=== PATIENT | male | born 1965 | race Caucasian/White ===

== ENCOUNTER 2024-08-30 14:13 | Observation (INO) ==
[2024-08-30 15:04] LABS: Basophils # (auto) 0.03 K/uL (0.00-0.20); Basophils % (auto) 0.3 %; Eosinophils # (auto) 0.19 K/uL (0.00-0.50); Hematocrit (blood only) 45.8 % (42.0-52.0); Hemoglobin 15.9 g/dl (14.0-18.0); Immature Granulocytes # (auto) 0.02 K/uL (0.01-0.20); Immature Granulocytes % (auto) 0.2 %; Lymphocytes # (auto) 1.81 K/uL (1.20-3.40); Lymphocytes % (auto) 18.9 %; Mean Corpuscular Hemoglobin 30.6 pg (25.0-34.0); Mean Corpuscular Hgb Conc 34.7 g/dL (32.0-36.0); Mean Corpuscular Volume 88.2 fL (80.0-100.0); Mean Platelet Volume 10.8 fL (9.4-12.4); Monocytes # (auto) 0.72 K/uL (0.11-0.59); Monocytes % (auto) 7.5 %; Neutrophils # (auto) 6.79 K/uL (1.40-6.50); Neutrophils % (auto) 71.1 %; Platelet Count 206 K/uL (130-400); RDW Coefficient of Variation 12.3 % (11.5-14.5); RDW Standard Deviation 40.1 fL (36.4-46.3); Red Blood Count 5.19 M/uL (4.70-6.10); White Blood Count 9.56 K/ul (4.8-10.8)
--- NOTE | 2024-08-30 15:07 | Emergency Department Note ---
Impression & Plan Atypical chest pain ED Provider Note CHIEF COMPLAINT: Chest pain HISTORY OF PRESENT ILLNESS: This 59-year-old male patient presents to the emergency department for evaluation of left sided and central chest pain. He reports the pain began approximately 2 days ago. He states it began as a pain in the middle of his upper spine, and left shoulder. He reports yesterday the pain began to radiate around to the left side and into the central chest. 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 He reports that it was positional, worse when he wants forward, or lies on his left or right side. He reports the pain was so severe, he pulled his truck to the side of the road and called an ambulance. He states no previous cardiac history, and no recent illnesses. He reports hx of HTN, DMII, and BPH. He describes the pain as a belt around his chest that is tightening. He appears well, with stable vital signs. REVIEW OF SYSTEMS: A review of systems was performed with positives and pertinent negatives listed in the history of present illness. All other systems were reviewed and are negative. ALLERGIES: See below MEDICATIONS: See below PMH: See below PHYSICAL EXAM: VITALS: Vitals are noted on the nurse's note and reviewed by myself. Vital signs stable. GENERAL: 59-year-old male, in mild distress, nondiaphoretic, obese. SKIN: The skin was without rashes, erythema, edema, or bruising. HEAD: Normocephalic atraumatic. EYES: Pupils equal round and reactive to light and accommodation. Conjunctivae without injection, sclerae without icterus. Extraocular movements intact. NECK: Supple without nuchal rigidity. No lymphadenopathy. No JVD. HEART: Regular rate and rhythm without murmurs gallops or rubs. LUNGS: Clear to auscultation bilaterally without wheezes, rales or rhonchi. No retractions or accessory muscle use. ABDOMEN: Positive bowel sounds x 4. Soft, slight TTP in the epigastrium, no diffuse TTP, no rebound TTP or guarding. MUSCULOSKELETAL: No muscle atrophy, erythema, or edema noted. NO TTP present upon exam or reproducible pain on the left, central, chest, or back. Normal gait. Strength 5/5 throughout. NEURO: Patient was alert and oriented to person place and time. No focal neurological deficits. MEDICAL DECISION MAKING: The patient is a pleasant 59-year-old male who arrives to the emergency department for evaluation of the above-stated complaint. Upon examination the patient has severe pain to the left anterior chest. Initial workup was performed including a saline lock, CBC, CMP, lipase, troponin, chest x-ray and EKG by nursing staff. CBC shows no leukocytosis, with a stable hemoglobin and hematocrit, CMP is unremarkable, lipase negative troponin negative. Chest x-ray shows 1.2 cm right lower lobe opacity, consistent with nodule, pneumonia, or artifactual. EKG shows normal sinus rhythm at a rate of 85 bpm, with no ST elevation, depression, or ectopy. 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 After discussion with the patient, CT of the chest with IV contrast was obtained, as well as a CRP. CRP is elevated at 5.17. CT imaging of the chest shows a likely previous granulomatous disease with current granuloma in the right middle lobe. The patient was provided IV Pepcid, as well as IV Toradol for pain control, with no relief of his symptoms. His symptoms are consistent with pericarditis, however, PE cannot be ruled out without further imaging. At this time, I believe the patient requires hospital admission for further workup, and cardiology evaluation. Case management was contacted to facilitate admission to the [facility] – [place], [place]. The case was discussed with Dr. Powers, who agreed to accept the patient under his care. Upper respiratory biofire panel was obtained as well as PE study of the chest per Dr. Powers. Please see his documentation for further patient workup and care. DIFFERENTIAL DIAGNOSIS: Cardiac ischemia, aortic dissection, pulmonary embolism, pneumothorax, pneumonia, pericarditis, myocarditis, esophageal rupture, GERD, cholecystitis, pancreatitis, musculoskeletal, as well as other pathologies. Continuous volunteer recruitment coordinator: Order was placed for continuous volunteer recruitment coordinator. Patient was placed on the volunteer recruitment coordinator. Patient was noted to be in normal sinus rhythm at an initial rate of 83 bpm. The chart was completed utilizing [employer] voice recognition software. Grammatical errors, random word insertions, pronoun errors, and incomplete sentences are an occasional consequence of this system due to software limitations, ambient noise, and hardware issues. Any formal questions or concerns about the content, text, or information contained within the body of this dictation should be directly addressed to the physician for clarification. Past Med/Surg History Problem List (Updated 08/30/24 @ 20:04 by JACE Murillo) Atypical chest pain (Acute) Social History Smoking Status: Never smoker Preferred Language: Azeri Feels Safe at Home: Yes Allergies Allergies Allergy/AdvReac Type Severity Reaction Status Date / Time No Known Allergies Allergy Unverified 08/30/24 16:10 Results & Data (ED) Vital Signs Vital Signs - 24 hr 08/30/24 14:24 08/30/24 14:36 08/30/24 14:40 Temperature 37.1 C Temperature Source Oral Pulse Rate 86 83 99 H Pulse Rate [Apical] Pulse Rhythm Regular Regular Pulse Strength Normal Respiratory Rate 25 H 19 Respiratory Effort / Characteristics Non-Labored Respiratory Depth Normal Respiratory Pattern Regular Blood Pressure 132/95 Blood Pressure [Right Arm] Blood Pressure Mean 107 Blood Pressure Mean [Right Arm] Blood Pressure Position Lying Blood Pressure Position [Right Arm] Pulse Oximetry 95 94 Oxygen Delivery Method Room Air Room Air Sepsis Recent Fever Within 48 Hours No Sepsis New/Unexplained Change in Mental Status N/A Sepsis Action Taken by Nursing No Action Required 08/30/24 16:03 08/30/24 18:33 Temperature Temperature Source Pulse Rate Pulse Rate [Apical] 84 93 H Pulse Rhythm Pulse Strength Respiratory Rate 14 19 Respiratory Effort / Characteristics Respiratory Depth Respiratory Pattern Blood Pressure Blood Pressure [Right Arm] 146/98 H 167/102 H Blood Pressure Mean Blood Pressure Mean [Right Arm] 114 123 Blood Pressure Position Blood Pressure Position [Right Arm] Lying Standing Pulse Oximetry 95 96 Oxygen Delivery Method Room Air Room Air Sepsis Recent Fever Within 48 Hours Sepsis New/Unexplained Change in Mental Status Sepsis Action Taken by [facility] Medications Current Medication List: was personally reviewed by me Laboratory Data Attestation: I reviewed the patient's lab results. 08/30/24 14:37 08/30/24 14:37 Lab Results 08/30/24 08/30/24 Range/Units 14:37 18:55 WBC 9.56 (4.8-10.8) K/ul RBC 5.19 (4.70-6.10) M/uL Hgb 15.9 (14.0-18.0) g/dl Hct 45.8 (42.0-52.0) % MCV 88.2 (80.0-100.0) fL MCH 30.6 (25.0-34.0) pg MCHC 34.7 (32.0-36.0) g/dL RDW Std Deviation 40.1 (36.4-46.3) fL RDW Coeff of Bree 12.3 (11.5-14.5) % Plt Count 206 (130-400) K/uL MPV 10.8 (9.4-12.4) fL Immature Gran % (Auto) 0.2 % Neut % (Auto) 71.1 % Lymph % (Auto) 18.9 % [place] % (Auto) 7.5 % Eos % (Auto) 2.0 % Baso % (Auto) 0.3 % Neut # (Auto) 6.79 H (1.40-6.50) K/uL Lymph # (Auto) 1.81 (1.20-3.40) K/uL [place] # (Auto) 0.72 H (0.11-0.59) K/uL Eos # (Auto) 0.19 (0.00-0.50) K/uL Baso # (Auto) 0.03 (0.00-0.20) K/uL Immature Gran # (Auto) 0.02 (0.01-0.20) K/uL Sodium 139 (136-145) mmol/L Potassium 3.7 (3.5-5.1) mmol/L Chloride 107 (98-107) mmol/L Carbon Dioxide 26 (21-32) mmol/L Anion Gap 6 (3-11) BUN 19 (6-23) mg/dl Creatinine 0.78 (0.6-1.4) mg/dl Est Cr Clr Drug Dosing 124.0 ml/min eGFR 102.73 BUN/Creatinine Ratio 24.4 H (10-20) Glucose 116 H (70-99(Fasting)) mg/dl Calcium 8.9 (8.6-10.3) mg/dl Total Bilirubin 1.0 (0.2-1.0) mg/dl AST 19 (13-39) U/L ALT 26 (7-52) U/L Alkaline Phosphatase 47 (34-104) U/L Troponin I High Sens 3.4 3.4 (0-20) pg/ml C-Reactive Protein 5.17 H (0-0.5) mg/dl Total Protein 7.3 (6.0-8.3) gm/dl Albumin 3.8 (3.4-5.0) gm/dl Globulin 3.5 (2.5-4.0) gm/dl Albumin/Globulin Ratio 1.1 (0.9-2) Lipase 15 (11-82) U/L Administered Medications Discontinued Medications Famotidine (Pepcid 20mg Iv Push) 20 mg in 5 mls @ 2.5 mls/min IV NOW STA Stop: 08/30/24 16:05 Last Admin: 08/30/24 16:13 Dose: 2.5 mls/min Documented By: JOE Ketorolac Tromethamine (Ketorolac Tromethamine 15 Mg/Ml Vial) 15 mg IV NOW ONE Stop: 08/30/24 18:10 Last Admin: 08/30/24 18:34 Dose: 15 mg Documented By: JOE Imaging Data Attestation: I personally reviewed and interpreted this imaging study as follows: Radiologist's Impression: Chest X-Ray 08/30/24 14:36 XR chest 1V portable CLINICAL HISTORY: Chest pain, nonspecific COMPARISON STUDY: No previous studies for comparison. FINDINGS: Lung volumes are mildly diminished. There is a subtle 1.2 cm right lower lung opacity. There is no pneumothorax or pleural effusion. Cardiac size is normal. Mediastinal contours are normal. There is no evidence for pulmonary edema. IMPRESSION: Subtle 1.2 cm right lower lung opacity. This may be artifactual however a small focus of pneumonia or a pulmonary nodule could appear similar. Follow-up PA and lateral chest radiographs in one month to ensure resolution are recommended. ACT 112: Negative or not required by law. Electronically signed by: Klaus Mike M.D. 08/30/2024 3:[address] 08/30/24 16:39 EXAM: CT Chest With Intravenous Contrast INDICATION: Back pain for 2 days. TECHNIQUE: Axial computed tomography images of the chest with intravenous contrast. Sagittal and coronal reformatted images were created and reviewed. This CT exam was performed using one or more of the following dose reduction techniques: automated exposure control, adjustment of the mA and/or kV according to patient size, and/or use of iterative reconstruction technique. CONTRAST: 94ml of Optiray 320 was administered intravenously. COMPARISON: No relevant prior studies available. FINDINGS: Limitations: None. Lungs and pleural spaces: Right middle lobe granuloma noted. There is mild atelectasis in the lower lobes. No bronchiectasis, honeycombing or reticulation. No pneumothorax. No significant effusion. Heart: No abnormality noted. Thyroid: No abnormality noted. Bones/joints: Mild scoliotic curvature of the spine. No acute or chronic deformity. Soft tissues: No significant abnormality noted. Vasculature: No abnormality noted. No thoracic aortic aneurysm. Lymph nodes: There are subcentimeter calcified and noncalcified right paratracheal and right hilar lymph nodes consistent with previous granulomatous disease. Liver: Normal size and contour. Hypodense typical of steatosis. No mass or ductal dilation. IMPRESSION: No acute findings in the chest. ACT 112: Negative or not required by law. Electronically signed by Elin Echols 08-30-2024 5:35 PM Discharge Plan Visit Data Chief Complaint: Chest Pain Stated Complaint: CHEST PAIN ED Provider: Courtney Flores ED Midlevel Provider: Myesha Musa Discharge Problem: Atypical chest pain Forms Stand Alone Forms: [facility] Referrals Referrals: PCP,NO [Primary Care Provider] -
[2024-08-30 15:22] LABS: Albumin Globulin Ratio 1.1 (0.9-2); Albumin Level 3.8 gm/dl (3.4-5.0); BUN Creatinine Ratio 24.4 (10-20); Calcium 8.9 mg/dl (8.6-10.3); Globulin 3.5 gm/dl (2.5-4.0); Potassium 3.7 mmol/L (3.5-5.1); Total Protein 7.3 gm/dl (6.0-8.3)
[2024-08-30 15:27] LABS: Troponin I High Sensitivity 3.4 pg/ml (0-20)
--- NOTE | 2024-08-30 15:41 | XRay Report ---
XR chest 1V portable CLINICAL HISTORY: Chest pain, nonspecific COMPARISON STUDY: No previous studies for comparison. FINDINGS: Lung volumes are mildly diminished. There is a subtle 1.2 cm right lower lung opacity. Ther e is no pneumothorax or pleural effusion. Cardiac size is normal. Mediastinal contours are normal. Th ere is no evidence for pulmonary edema. IMPRESSION: Subtle 1.2 cm right lower lung opacity. This may be artifactual however a small focus of pneumonia or a pulmonary nodule could appear similar. Follow-up PA and lateral chest radiographs in one month to ensure resolution are recommended. ACT 112: Negative or not required by law. Electronically signed by: Klaus Mike M.D. 08/30/2024 3:39 PM
--- NOTE | 2024-08-30 16:08 | Electrocardiogram Report ---
Test Reason : Blood Pressure : */* mmHG Vent. Rate : 85 BPM Atrial Rate : 85 BPM P-R Int : 134 ms QRS Dur : 80 ms QT Int : 354 ms P-R-T Axes : 29 -17 58 degrees QTcB Int : 421 ms Normal sinus rhythm Normal ECG No previous ECGs available Confirmed by Alvarado Quiroz ([id number]) on 08/30/2024 4:06:17 PM Referred By: Confirmed By: Alvarado Quiroz
[2024-08-30] MEDS: FAMOTIDINE 20MG IV PUSH 20 MG/5 ML SYR IV STA (16:13)
--- NOTE | 2024-08-30 17:36 | CT Scan Report ---
EXAM: CT Chest With Intravenous Contrast INDICATION: Back pain for 2 days. TECHNIQUE: Axial computed tomography images of the chest with intravenous contrast. Sagittal and coronal reformatted images were created and reviewed. This CT exam was performed using one or more of the following dose reduction techniques: automated exposure control, adjustment of the mA and/or kV according to patient size, and/or use of iterative reconstruction technique. CONTRAST: 94ml of Optiray 320 was administered intravenously. COMPARISON: No relevant prior studies available. FINDINGS: Limitations: None. Lungs and pleural spaces: Right middle lobe granuloma noted. There is mild atelectasis in the lower lobes. No bronchiectasis, honeycombing or reticulation. No pneumothorax. No significant effusion. Heart: No abnormality noted. Thyroid: No abnormality noted. Bones/joints: Mild scoliotic curvature of the spine. No acute or chronic deformity. Soft tissues: No significant abnormality noted. Vasculature: No abnormality noted. No thoracic aortic aneurysm. Lymph nodes: There are subcentimeter calcified and noncalcified right paratracheal and right hilar lymph nodes consistent with previous granulomatous disease. Liver: Normal size and contour. Hypodense typical of steatosis. No mass or ductal dilation. IMPRESSION: No acute findings in the chest. ACT 112: Negative or not required by law. Electronically signed by Elin Echols 08-30-2024 5:35 PM
[2024-08-30] MEDS: KETOROLAC TROMETHAMINE 15 MG/ML VIAL IV ONE ×2 (18:34→22:42)
[2024-08-30 18:52] LABS: C Reactive Protein 5.17 mg/dl (0-0.5)
--- NOTE | 2024-08-30 20:11 | History & Physical Report ---
Date of Service August 30, 2024 Assessment & Plan (1) Atypical chest pain: (2) Hypertension: (3) Granulomatous lung disease: (4) Diabetes mellitus: (5) Vitamin D deficiency: Plan Atypical chest pain/hypertension- The patient will be admitted to telemetry for serial cardiac enzymes, serial EKG's, cardiac rhythm monitoring and a 2-D echocardiogram with Dopplers. Patient reports he had not taken his metoprolol succinate 125 mg on the morning of 08/30 Will give a partial dose 50 mg this evening, and then resume full dosing in the a.m. on 08/31 Initial troponin 3.4 EKG shows normal sinus rhythm at [address]-T changes Patient did get significant improvement in pain with Toradol 15 mg IV given in the ED Respiratory BioFire test was negative Tickborne panel ordered and pending CT angiography chest PE protocol was negative for PE, but did show evidence of prior granulomatous disease as noted Differential including but not limited to: Coronary ischemia, arrhythmia, granulomatous disease, pericarditis, pleuritis, tickborne illness Diabetes mellitus- Hold metformin Placed on Accu-Cheks with NovoLog SSI Granulomatous disease- Noted on chest x-ray and CT Of note, patient does report exposure to chickens There is not appear to be an active exacerbation of pre-existing disease Follow clinically Vitamin D deficiency- Continue supplementation as noted History of Present Illness Chief Complaint: The patient presents to the emergency department with complaint of chest pain that began about 2 days ago, initially began in his back, went around to his front on both sides, then up into his chest bilaterally. His symptoms worsened considerably the day of admission, 08/30, and thus presents to the ED for assessment. 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 Primary Care Provider: NO PCP The patient is a 59-year-old male with a past medical and surgical history including hypertension, diabetes mellitus, vitamin D deficiency, and lumbar degenerative disc disease status post discectomy many years ago. 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 Allergies Allergy/AdvReac Type Severity Reaction Status Date / Time No Known Allergies Allergy Unverified 08/30/24 16:10 Past Med/Surg History Problem List (Updated 08/31/24 @ 02:43 by Denis Powers MD) Vitamin D deficiency Diabetes mellitus Hypertension Atypical chest pain (Acute) Medical History (Updated 08/31/24 @ 02:43 by Denis Powers MD) Granulomatous lung disease Social History Smoking Status: Never smoker Hx Alcohol Use: Yes Alcohol type: hard liquor Hx Substance Use: No Preferred Language: Mauritanian Communication Ability: Effective Screen Door Maker Required: No Beliefs That Will Affect Care: None Current Living Situation: Significant Other Other Information That Helps Us Care for You: No Feels Safe at Home: Yes Safety Concerns: Feels Safe At This Time Assistive Devices: None Review of Systems Review of Systems: The patient denies palpitations, cough, lower extremity swelling, sore throat, fevers, chills, sweats, nausea, vomiting, diarrhea , constipation, abdominal pain, pelvic pain, blood in urine or stool, dysuria, urinary frequency or urgency, lightheadedness, dizziness, headache, memory loss, loss of consciousness, rash, abnormal bruising or bleeding, imbalance, focal weakness, numbness or tingling in arms or legs, neck pain, or night sweats. The review of systems is otherwise negative other than for that already noted above, and at least 10 systems have been reviewed. Physical Exam Physical Exam: The patient is awake, alert and oriented 3, well developed and well nourished, normocephalic and atraumatic, lying in bed and in no acute distress. HEENT--PERRL, EOMI, mucous membranes and oropharynx mildly dry. Neck--supple. No JVD. No bruits. Thyroid normal, trachea midline, no adenopathy. Heart--normal S1 and S2. No murmurs, rubs or gallops. Lungs--clear bilaterally, no respiratory distress, no accessory muscle use. Abdomen--normal bowel sounds and soft. Nontender. Nondistended. Obese Extremities--no cyanosis or clubbing. No edema. There are good distal pulses b/l. Dermatologic--normal skin turgor, normal color, no abnormal lymph nodes, no rash. Neurologic--cranial nerves II through XII grossly intact. Rheumatologic--normal range of motion. Psychiatric--normal affect. Results & Data Results & Data Vital Signs (Past 12 Hours) Vital Signs Temp Pulse Pulse Resp BP BP Pulse Ox 08/30/24 18:33 93 H 19 167/102 H 96 08/30/24 16:03 84 14 146/98 H 95 08/30/24 14:40 37.1 C 99 H 19 132/95 94 08/30/24 14:36 83 25 H 95 08/30/24 14:24 86 O2 Del Method 08/30/24 18:33 Room Air 08/30/24 16:03 Room Air 08/30/24 14:40 Room Air 08/30/24 14:36 Room Air 08/30/24 14:24 Laboratory Results Laboratory Results WBC 9.56 K/ul (4.8-10.8) 08/30/24 14:37 RBC 5.19 M/uL (4.70-6.10) 08/30/24 14:37 Hgb 15.9 g/dl (14.0-18.0) 08/30/24 14:37 Hct 45.8 % (42.0-52.0) 08/30/24 14:37 MCV 88.2 fL (80.0-100.0) 08/30/24 14:37 MCH 30.6 pg (25.0-34.0) 08/30/24 14:37 MCHC 34.7 g/dL (32.0-36.0) 08/30/24 14:37 RDW Std Deviation 40.1 fL (36.4-46.3) 08/30/24 14:37 RDW Coeff of Bree 12.3 % (11.5-14.5) 08/30/24 14:37 Plt Count 206 K/uL (130-400) 08/30/24 14:37 MPV 10.8 fL (9.4-12.4) 08/30/24 14:37 Immature Gran % (Auto) 0.2 % 08/30/24 14:37 Neut % (Auto) 71.1 % 08/30/24 14:37 Lymph % (Auto) 18.9 % 08/30/24 14:37 Real % (Auto) 7.5 % 08/30/24 14:37 Eos % (Auto) 2.0 % 08/30/24 14:37 Baso % (Auto) 0.3 % 08/30/24 14:37 Neut # (Auto) 6.79 K/uL (1.40-6.50) H 08/30/24 14:37 Lymph # (Auto) 1.81 K/uL (1.20-3.40) 08/30/24 14:37 Real # (Auto) 0.72 K/uL (0.11-0.59) H 08/30/24 14:37 Eos # (Auto) 0.19 K/uL (0.00-0.50) 08/30/24 14:37 Baso # (Auto) 0.03 K/uL (0.00-0.20) 08/30/24 14:37 Immature Gran # (Auto) 0.02 K/uL (0.01-0.20) 08/30/24 14:37 PT 10.3 Seconds (9.0-12.0) 08/30/24 14:37 INR 0.9 (0.9-1.1) 08/30/24 14:37 APTT 28 Seconds (21-31) 08/30/24 14:37 PTT Ratio 1.0 08/30/24 14:37 Sodium 139 mmol/L (136-145) 08/30/24 14:37 Potassium 3.7 mmol/L (3.5-5.1) 08/30/24 14:37 Chloride 107 mmol/L (98-107) 08/30/24 14:37 Carbon Dioxide 26 mmol/L (21-32) 08/30/24 14:37 Anion Gap 6 (3-11) 08/30/24 14:37 BUN 19 mg/dl (6-23) 08/30/24 14:37 Creatinine 0.78 mg/dl (0.6-1.4) 08/30/24 14:37 Est Cr Clr Drug Dosing 124.0 ml/min 08/30/24 14:37 eGFR 102.73 08/30/24 14:37 BUN/Creatinine Ratio 24.4 (10-20) H 08/30/24 14:37 Glucose 116 mg/dl (70-99(Fasting)) H 08/30/24 14:37 POC Glucose 180 mg/dl (70-99) H 08/30/24 22:37 Calcium 8.9 mg/dl (8.6-10.3) 08/30/24 14:37 Total Bilirubin 1.0 mg/dl (0.2-1.0) 08/30/24 14:37 AST 19 U/L (13-39) 08/30/24 14:37 ALT 26 U/L (7-52) 08/30/24 14:37 Alkaline Phosphatase 47 U/L (34-104) 08/30/24 14:37 Troponin I High Sens 3.4 pg/ml (0-20) 08/30/24 18:55 C-Reactive Protein 5.17 mg/dl (0-0.5) H 08/30/24 14:37 Total Protein 7.3 gm/dl (6.0-8.3) 08/30/24 14:37 Albumin 3.8 gm/dl (3.4-5.0) 08/30/24 14:37 Globulin 3.5 gm/dl (2.5-4.0) 08/30/24 14:37 Albumin/Globulin Ratio 1.1 (0.9-2) 08/30/24 14:37 Lipase 15 U/L (11-82) 08/30/24 14:37 Urine Color Yellow 08/30/24 20:15 Urine Appearance Clear (Clear) 08/30/24 20:15 Urine pH 6.5 (4.5-7.5) 08/30/24 20:15 Ur Specific [place] 1.021 (1.000-1.030) 08/30/24 20:15 Urine Protein Negative (Negative) 08/30/24 20:15 Urine Glucose (UA) Negative (Negative) 08/30/24 20:15 Urine Ketones Trace (Negative) H 08/30/24 20:15 Urine Blood Negative (Negative) 08/30/24 20:15 Urine Nitrite Negative (Negative) 08/30/24 20:15 Urine Bilirubin Negative (Negative) 08/30/24 20:15 Urine Urobilinogen Negative (Negative) 08/30/24 20:15 Ur Leukocyte Esterase Negative (Negative) 08/30/24 20:15 Adenovirus (PCR) Not Detected (NotDetected) 08/30/24 20:17 B. pertussis DNA (PCR) Not Detected (NotDetected) 08/30/24 20:17 B.parapertussis DNA PCR Not Detected (NotDetected) 08/30/24 20:17 C. pneumoniae DNA (PCR) Not Detected (NotDetected) 08/30/24 20:17 Coronavirus OC43 (PCR) Not Detected (NotDetected) 08/30/24 20:17 Coronavirus HKU1 (PCR) Not Detected (NotDetected) 08/30/24 20:17 Coronavirus 229E (PCR) Not Detected (NotDetected) 08/30/24 20:17 SARS-CoV-2 (PCR) Not Detected (NotDetected) 08/30/24 20:17 Coronavirus NL63 (PCR) Not Detected (NotDetected) 08/30/24 20:17 Human Metapneumovir PCR Not Detected (NotDetected) 08/30/24 20:17 Influenza Type A (PCR) Not Detected (NotDetected) 08/30/24 20:17 Influenza Type B (PCR) Not Detected (NotDetected) 08/30/24 20:17 M. pneumoniae (PCR) Not Detected (NotDetected) 08/30/24 20:17 Parainfluenza 1 (PCR) Not Detected (NotDetected) 08/30/24 20:17 Parainfluenza 2 (PCR) Not Detected (NotDetected) 08/30/24 20:17 Parainfluenza 3 (PCR) Not Detected (NotDetected) 08/30/24 20:17 Parainfluenza 4 (PCR) Not Detected (NotDetected) 08/30/24 20:17 RSV (PCR) Not Detected (NotDetected) 08/30/24 20:17 Entero/Rhino (PCR) Not Detected (NotDetected) 08/30/24 20:17 Impressions Chest X-Ray 08/30/24 14:36 XR chest 1V portable CLINICAL HISTORY: Chest pain, nonspecific COMPARISON STUDY: No previous studies for comparison. FINDINGS: Lung volumes are mildly diminished. There is a subtle 1.2 cm right lower lung opacity. There is no pneumothorax or pleural effusion. Cardiac size is normal. Mediastinal contours are normal. There is no evidence for pulmonary edema. IMPRESSION: Subtle 1.2 cm right lower lung opacity. This may be artifactual however a small focus of pneumonia or a pulmonary nodule could appear similar. Follow-up PA and lateral chest radiographs in one month to ensure resolution are recommended. ACT 112: Negative or not required by law. Electronically signed by: Klaus Mike M.D. 08/30/2024 3:[address] 08/30/24 16:39 EXAM: CT Chest With Intravenous Contrast INDICATION: Back pain for 2 days. TECHNIQUE: Axial computed tomography images of the chest with intravenous contrast. Sagittal and coronal reformatted images were created and reviewed. This CT exam was performed using one or more of the following dose reduction techniques: automated exposure control, adjustment of the mA and/or kV according to patient size, and/or use of iterative reconstruction technique. CONTRAST: 94ml of Optiray 320 was administered intravenously. COMPARISON: No relevant prior studies available. FINDINGS: Limitations: None. Lungs and pleural spaces: Right middle lobe granuloma noted. There is mild atelectasis in the lower lobes. No bronchiectasis, honeycombing or reticulation. No pneumothorax. No significant effusion. Heart: No abnormality noted. Thyroid: No abnormality noted. Bones/joints: Mild scoliotic curvature of the spine. No acute or chronic deformity. Soft tissues: No significant abnormality noted. Vasculature: No abnormality noted. No thoracic aortic aneurysm. Lymph nodes: There are subcentimeter calcified and noncalcified right paratracheal and right hilar lymph nodes consistent with previous granulomatous disease. Liver: Normal size and contour. Hypodense typical of steatosis. No mass or ductal dilation. IMPRESSION: No acute findings in the chest. ACT 112: Negative or not required by law. Electronically signed by Elin Echols 08-30-2024 5:35 PM Chest CTA 08/30/24 19:32 Exam(s): CTA CHEST IV Amt: 117cc optiray 320 EXAM: CT Angiography Chest With Intravenous Contrast CLINICAL HISTORY: PE. TECHNIQUE: Axial computed tomographic angiography images of the chest with intravenous contrast. CTDI is 28.14 mGy and DLP is 873.63 mGy-cm. Automated exposure control was utilized for the study. A dose lowering technique was utilized adhering to the principles of ALARA. 3D and MIP reconstructed images were created and reviewed. COMPARISON: CT chest 08/30/2024. FINDINGS: Pulmonary arteries: No pulmonary embolism. Aorta: No thoracic aortic aneurysm or dissection. Lungs: No consolidation. Mild left lower lobe atelectasis. 6 mm right upper lobe calcification/granuloma. Pleural space: No pleural effusion. No pneumothorax. Heart: No cardiomegaly. No pericardial effusion. No evidence of RV dysfunction. Bones/joints: No acute fracture. Soft tissues: Unremarkable. Lymph nodes: Multiple calcified mediastinal and right hilar lymph nodes. No enlarged lymph nodes. Abdomen: Liver is mildly hypodense/fatty. IMPRESSION: No pulmonary embolism. Prior granulomatous disease. Minimal left basilar atelectasis. No lobar consolidation. Otherwise no change. Electronically signed by: Clifton Torres M.D. 08/30/24 23:59 PM Code Status & VTE Plan Code Status Full code VTE Prophylaxis Plan VTE Prophylaxis will be ordered: Yes PG Care Time/CCT Total # of Minutes Spent Total Time Spent with Patient: Total time spent is greater than 50% in coordination of care (as documented) at patient's floor/unit and/or counseling patient: Coding Level of Care Code 03832 INT INP/OBS CARE 3/75MIN Diagnoses Atypical chest pain R07.89 Hypertension I10 Granulomatous lung disease J84.10 Diabetes mellitus E11.9 Vitamin D deficiency E55.9
[2024-08-30] MEDS: OPTIRAY 320 125ml IV ONE (20:13)
[2024-08-30 20:34] LABS: Appearance Urine Clear (Clear); Bilirubin Urine Negative (Negative); Blood Urine Negative (Negative); Color Urine Yellow; Glucose Urine UA Negative (Negative); Ketones Urine Trace (Negative); Leukocyte Esterase Urine Negative (Negative); Nitrite Urine Negative (Negative); Protein Urine Negative (Negative); Specific Gravity Urine 1.021 (1.000-1.030); Urobilinogen Urine Negative (Negative); pH Urine 6.5 (4.5-7.5)
[2024-08-30] MEDS: METOPROLOL SUCC 50MG EXT REL TAB PO STA (20:43)
[2024-08-30 21:17] LABS: Adenovirus PCR Not Detected (NotDetected); Bordetella parapertussis PCR Not Detected (NotDetected); Bordetella pertussis PCR Not Detected (NotDetected); Chlamydia pneumoniae PCR Not Detected (NotDetected); Coronavirus 229E PCR Not Detected (NotDetected); Coronavirus CoV-2 (COVID19)PCR Not Detected (NotDetected); Coronavirus HKU1 PCR Not Detected (NotDetected); Coronavirus NL63 PCR Not Detected (NotDetected); Coronavirus OC43PCR Not Detected (NotDetected); Human Metapneumovirus PCR Not Detected (NotDetected); Influenza A PCR Not Detected (NotDetected); Influenza B PCR Not Detected (NotDetected); Mycoplasma pneumoniae PCR Not Detected (NotDetected); Parainfluenza Virus 1 PCR Not Detected (NotDetected); Parainfluenza Virus 2 PCR Not Detected (NotDetected); Parainfluenza Virus 3 PCR Not Detected (NotDetected); Parainfluenza Virus 4 PCR Not Detected (NotDetected); Respiratory Syncytial VirusPCR Not Detected (NotDetected); Rhinovirus/Enterovirus PCR Not Detected (NotDetected)
[2024-08-30 21:23] LABS: INR 0.9 (0.9-1.1); Partial Thromboplastin Time 28 Seconds (21-31); Prothrombin Time 10.3 Seconds (9.0-12.0)
[2024-08-30] MEDS ORDERED: DEXTROSE 50% 50 ML SYRINGE IV PRN (22:09)
[2024-08-30] MEDS ORDERED: GLUCOSE 40% GEL 15 GM TUBE PO PRN (22:09)
[2024-08-30] MEDS ORDERED: ONDANSETRON INJ 2 MG/ML 2 ML VIAL IV PRN (22:09)
[2024-08-30] MEDS ORDERED: GLUCOSE 10 TAB/TUBE PO PRN (22:09)
[2024-08-30] MEDS ORDERED: GLUCAGON FOR INJ 1 MG VIAL SQ PRN (22:09)
[2024-08-30] MEDS ORDERED: CARBOHYDRATES FOR HYPOGLYCEMIA PO PRN (22:09)
[2024-08-30] MEDS: INSULIN ASPART PER UNIT CHARGE SC SCH (23:02)
--- NOTE | 2024-08-31 | CT Scan Report ---
Exam(s): CTA CHEST IV Amt: 117cc optiray 320 EXAM: CT Angiography Chest With Intravenous Contrast CLINICAL HISTORY: PE. TECHNIQUE: Axial computed tomographic angiography images of the chest with intravenous contrast. CTDI is 28.14 mGy and DLP is 873.63 mGy-cm. Automated exposure control was utilized for the study. A dose lowering technique was utilized adhering to the principles of ALARA. 3D and MIP reconstructed images were created and reviewed. COMPARISON: CT chest 08/30/2024. FINDINGS: Pulmonary arteries: No pulmonary embolism. Aorta: No thoracic aortic aneurysm or dissection. Lungs: No consolidation. Mild left lower lobe atelectasis. 6 mm right upper lobe calcification/granuloma. Pleural space: No pleural effusion. No pneumothorax. Heart: No cardiomegaly. No pericardial effusion. No evidence of RV dysfunction. Bones/joints: No acute fracture. Soft tissues: Unremarkable. Lymph nodes: Multiple calcified mediastinal and right hilar lymph nodes. No enlarged lymph nodes. Abdomen: Liver is mildly hypodense/fatty. IMPRESSION: No pulmonary embolism. Prior granulomatous disease. Minimal left basilar atelectasis. No lobar consolidation. Otherwise no change. Electronically signed by: Clifton Torres M.D. 08/30/24 23:59 PM
[2024-08-31] MEDS: ACETAMINOPHEN 325 MG TAB PO PRN (05:07)
[2024-08-31 05:46] LABS: Basophils # (auto) 0.03 K/uL (0.00-0.20); Basophils % (auto) 0.4 %; Eosinophils # (auto) 0.22 K/uL (0.00-0.50); Eosinophils % (auto) 2.6 %; Hematocrit (blood only) 44.4 % (42.0-52.0); Immature Granulocytes # (auto) 0.03 K/uL (0.01-0.20); Immature Granulocytes % (auto) 0.4 %; Lymphocytes # (auto) 2.58 K/uL (1.20-3.40); Lymphocytes % (auto) 30.5 %; Mean Corpuscular Hemoglobin 30.1 pg (25.0-34.0); Mean Corpuscular Hgb Conc 33.8 g/dL (32.0-36.0); Mean Corpuscular Volume 89.2 fL (80.0-100.0); Mean Platelet Volume 10.4 fL (9.4-12.4); Monocytes # (auto) 0.81 K/uL (0.11-0.59); Monocytes % (auto) 9.6 %; Neutrophils # (auto) 4.79 K/uL (1.40-6.50); Neutrophils % (auto) 56.5 %; Platelet Count 186 K/uL (130-400); RDW Coefficient of Variation 12.5 % (11.5-14.5); RDW Standard Deviation 41.1 fL (36.4-46.3); Red Blood Count 4.98 M/uL (4.70-6.10); White Blood Count 8.46 K/ul (4.8-10.8)
[2024-08-31 06:00] LABS: Albumin Globulin Ratio 1.3 (0.9-2); Albumin Level 3.8 gm/dl (3.4-5.0); BUN Creatinine Ratio 20.6 (10-20); Bilirubin,Total 1.1 mg/dl (0.2-1.0); Calcium 8.7 mg/dl (8.6-10.3); Chol HDL Ratio 4.1 (0-5); Creatinine Clr Calc Pharmacy 90.4 ml/min; Magnesium 1.8 mg/dl (1.7-2.4); Potassium 4.1 mmol/L (3.5-5.1); Total Protein 6.8 gm/dl (6.0-8.3)
[2024-08-31 07:12] LABS: Estimated Average Glucose 148 mg/dl; Hemoglobin A1C 6.8 % (4.5-5.6)
[2024-08-31 12:09] VITALS: BP 131/58; PULSE 87; RESP 18; TEMP 98.2; O2SAT 98
--- NOTE | 2024-08-31 12:40 | XCELERA ---
[id number]
[2024-08-31] MEDS ORDERED: DICLOFENAC SOD 1% GEL 100 GM TUBE EXT SCH (13:10)
--- NOTE | 2024-08-31 13:29 | Discharge Summary ---
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 CXR neg except granuloma. Chest CTA neg for PE or PNA but shows prior granulomatous disease with right lung 6mm granuloma and calcified mediastinal and hilar EZRA Serial troponin neg x 3 and pain ongoing for 2 days. 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 (2) Hypertension: BPs controlled continue home metoprolol succinate 125mg po daily (3) Granulomatous lung disease: Noted on chest x-ray and chest CT Of note, patient does report exposure to chickens There does not appear to be an active exacerbation of pre-existing disease COuld be prior sarcoidosis or other old infection f/u with PCP and possibly PULM as outpt not related to ongoing chest pain here (4) Diabetes mellitus: HgbA1C well controlled at 6.8% resume home metformin 2 days after IV contrast dye load f/u with PCP encouraged weight loss, exercise (5) Vitamin D deficiency: continue supplement Plan Dispo-stable for dc to home Notes For Next Care Provider None Medication Changes From Visit Added ibuprofen and voltaren gel prn Admission HPI Per Admitting Provider The patient is a 59-year-old male with a past medical and surgical history including hypertension, diabetes mellitus, vitamin D deficiency, and lumbar degenerative disc disease status post discectomy many years ago. 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 Discharge Exam Constitutional WD/WN, vitals as above Neck trachea midline, no thyromegaly Respiratory normal respiratory effort, lungs clear to auscultation Cardiovascular RRR, no murmur, no edema Chest (Breasts) Chest: normal inspection of chest Additional Comments: +TTP over costochondral junctions lower sternum and +TTP mid thoracic spine and upper back, no masses Gastrointestinal (Abdomen) normal bowel sounds, soft, nontender, no hepatosplenomegaly Musculoskeletal Extremities: extremities normal to inspection; no cyanosis and no clubbing Skin no rashes, warm and dry Neurologic moves all extremities and awake; no focal motor deficits Psychiatric A+Ox3, euthymic affect Lymphatic no lymphedema Discharge Plan Discharge Items Patient Disposition: Home - Self-Care Reason For Visit: CHEST PAIN Discharge Diagnosis: Costochondritis Lung granuloma and calcified lymph nodes-suspect old granulomatous disease Condition on Discharge: Good Activity: Resume your previous activity Non-emergency contact: Primary Care Provider Call non-emergency contact if: you have any medication questions, your symptoms worsen, your pain is not controlled and your pain is worsening Follow-up/Referrals: PCP,NO [Primary Care Provider] - (Follow up with your PCP within 1-2 weeks) Diet: Carb Consistent or DM2 and Heart Healthy Addtl Attending Provider Instructions: You were admitted for chest pain and had a number of tests done which ruled out cardiac issues and blood clots in the lung. Your pain is coming from inflammation of the junction between your ribs and your breast bone and spine called costochondritis. This is treated with antiinflammatory medications such as topical voltaren gel and ibuprofen. You should also try to refrain from repetitive motions with your arms and from heavy lifting. Sometimes, seeing a chiropractor can also help resolve this issue. Pending Studies at Discharge: No Stand-Alone Forms: My [facility] [employer], Work/School Release, Smoking Cessation Medications and DC Order Prescriptions: New diclofenac sodium [Voltaren Arthritis Pain] 1 % Gel 2 g EXT QID Qty: 100 0RF ibuprofen 200 mg tablet 800 mg PO Q8H PRN (Reason: pain) Qty: 30 0RF Rx Instructions: OTC Continued metoprolol succinate [Toprol XL] 100 mg Tablet Extended Release 24 Hr 100 mg PO DAILY metoprolol succinate [Toprol XL] 25 mg Tablet Extended Release 24 Hr 25 mg PO DAILY cholecalciferol (vitamin D3) 50 mcg (2,000 unit) Capsule 50 mcg PO DAILY Held metformin 850 mg Tablet 850 mg PO BID Hold Instructions: Resume on 09/02/24. Discharge Orders: Discharge Order (Routine); Ordered 08/31/24 Ordered By: Irina Epstein/Other Patient Handouts: Diabetes: Meal Planning, Type 2 Diabetes Admission Data Admit Date/Time: 08/30/24 20:10 Attending Provider: Irina Baldwin Admit Provider: Denis Powers Primary Care Provider: PCP,NO Other Providers: Denis Powers; [facility],Hospital Hospital Stay Data Consultations 08/30/24 19:32 ED Decision to Admit Stat Diagnostic Imagining Performed 08/30/24 16:39 CT chest diagnostic w con Stat 08/30/24 19:32 CT angio chest PE protocol Stat ECHO Pending Results Patient Have Any Pending Studies at Discharge: No Discharge Instructions Given to Patient (Per Discharging Provider) You were admitted for chest pain and had a number of tests done which ruled out cardiac issues and blood clots in the lung. Your pain is coming from inflammation of the junction between your ribs and your breast bone and spine called costochondritis. This is treated with antiinflammatory medications such as topical voltaren gel and ibuprofen. You should also try to refrain from repetitive motions with your arms and from heavy lifting. Sometimes, seeing a chiropractor can also help resolve this issue. Total Time Total Time Spent Total Time Spent (In Minutes): 35 min Total Time Includes: Examination of the Patient, Discharge Planning and Medication Reconciliation Coding Level of Care Code 59873 INP/OBS DISCH >30 MIN Diagnoses Costochondritis M94.0 Hypertension I10 Granulomatous lung disease J84.10 Diabetes mellitus E11.9 Vitamin D deficiency E55.9
--- NOTE | 2024-08-31 15:14 | Electrocardiogram Report ---
Test Reason : Blood Pressure : */* mmHG Vent. Rate : 67 BPM Atrial Rate : 67 BPM P-R Int : 136 ms QRS Dur : 84 ms QT Int : 410 ms P-R-T Axes : 47 13 50 degrees QTcB Int : 433 ms Normal sinus rhythm Normal ECG When compared with ECG of 30-Aug-2024 14:25, No significant change was found Confirmed by Alvarado Quiroz ([id number]) on 08/31/2024 3:14:11 PM Referred By: NO PCP Confirmed By: Alvarado Quiroz
[2024-09-05 16:06] LABS: Babesia microti DNA Not Detected (Not Detected)
== END 2024-08-31 14:17 | disposition home or self-care (01) ==
LOC: EDBD → 2S 14:13 → ED 14:13 → SUATTDRO 20:10 → 2S 22:16